=== PATIENT | female | born 1965 ===

== ENCOUNTER 2017-07-11 13:54 | Emergency (ER) | payer OTHER ==
[~2017-07-11] VITALS: Ht 160 cm; Wt 84.4 kg
[~2017-07-11 13:54] MED LIST: DORYX100 MG PO; HYDROCHLOROTHIA25 MG PO
== END 2017-07-11 17:05 | disposition home or self-care (01) ==
LOC: ER 13:54
DX: N39.0 Urinary tract infection, site not specified (principal)